=== PATIENT | female | born 1960 | race Caucasian/White ===

== ENCOUNTER 2018-04-14 13:46 | Emergency (ER) | payer OTHER ==
[2018-04-14 14:04] VITALS: BP 195/92
--- NOTE | 2018-04-14 14:49 | UC ---
Dizzy HPI HPI Summary: Intermittent dizziness x 2 weeks. First occurred 2 weeks ago, had dizziness and sense of room moving x 1/2 hour after bending forward at work. Recurred 3 days ago when she turned towards her granddaughter, had sense of room moving. Has eased off, but for the past 2 days has had intermittent sense of lightheadness, sometimes with sense of room shifting. No headache, diplopia, vision loss or scotomoa. No associated nausea or vomiting. No sense of near fainging. Notable is very high blood pressure on assessment: 195/92 initially, recheck lying 178/82, standing systolic 202. No chest pain, shortness of breath. [employer] continuous churn smoker. Admits to anxiety over the snf, no treatment. Last medical check up was about 7 years ago. - History Of Current Complaint Chief Complaint: UCDizziness Stated Complaint: DIZZINESS Time Seen by Provider: 04/14/18 14:35 Hx Obtained From: Patient ?: No Onset/Duration: Gradual Onset, Lasting Days - 3 Timing: Intermittent Episode Lasting - hours off and on Severity Initially: Moderate Severity Currently: Moderate Pain Intensity: 0 Character: Room Spinning, Lightheaded Aggravating Factor(s): Position Change, Change In Head Position Alleviating Factor(s): Rest Associated Signs And Symptoms: Positive: Tinnitus - in left ear, associates with some hearing loss. - Risk Factors Cardiac Risk Factors: Hypertension, Smoking CVA Risk Factor: Hypertension, Smoking - Allergies/Home Medications Allergies/Adverse Reactions: Allergies Allergy/AdvReac Type Severity Reaction Status Date / Time oxycodone Allergy See Comment Verified 04/14/18 13:58 PMH/Surg Hx/FS Hx/Imm Hx - Additional Past Medical History Additional PMH: history of gestational diabetes Previously Healthy: Yes - Smoker 1/2 ppd x almost 40 years Psychological History: Anxiety - Surgical History Surgical History: None - Family History Known Family History: Positive: Hypertension, Diabetes, Other - father brain tumor - Social History Occupation: Employed Full-time Lives: With Family - fiancee Alcohol Use: Occasionally Substance Use Type: None Smoking Status (MU): Heavy Every Day Tobacco Smoker Type: Cigarettes Amount Used/How Often: 1 1/2 PPD Review of Systems Constitutional: Negative ENT: Nasal Discharge, Sinus Congestion, Other - recent Respiratory: Cough Psychological: Anxious Is Patient Immunocompromised?: No All Other Systems Reviewed And Are Negative: Yes Physical Exam Triage Information Reviewed: Yes Appearance: Well-Appearing, Thin - anxious. Vital Signs: Initial Vital Signs Temp 99.7 F 04/14/18 13:58 Pulse 108 04/14/18 13:58 Resp 18 04/14/18 13:58 BP 195/92 04/14/18 13:58 Pulse Ox 97 04/14/18 13:58 Eye Exam: Other - ADRIÁN, normal EOM, no nystagmus, normal visual garvin by confrontation. Eyes: Positive: Conjunctiva Clear ENT: Positive: Pharynx normal Dental Exam: Other - upper denture Neck: Positive: Supple, Nontender, No Lymphadenopathy Respiratory: Positive: Lungs clear, Normal breath sounds Cardiovascular: Positive: RRR, No Murmur Abdomen Description: Positive: Nontender, No Organomegaly, Soft. Negative: Bruit Musculoskeletal Exam: Normal Musculoskeletal: Positive: Strength Intact, ROM Intact Neurological Exam: Other - CNII-XII normal; DTR's 2+ Neurological: Positive: Alert, Muscle Tone Normal Psychological Exam: Normal - anxious, but mood is normal. Skin Exam: Normal Diagnostics - EKG Cardiac Rate: NL Cardiac Rhythm: Sinus: Normal Ectopy: None ST Segment: Normal Dizzy Course/Dx - Course Course Of Treatment: begin metoprolol 25mg once daily for treatment of hypertension. Use meclizine at night to ease dizziness. Follow up blood pressure needed in 4 days. - Differential Dx/Diagnosis Provider Diagnoses: positional vertigo. severe hypertension Discharge - Sign-Out/Discharge Documenting (check all that apply): Post-Discharge Follow Up - Discharge Plan Condition: Stable Disposition: HOME Prescriptions: Meclizine TAB* [Antivert 12.5 TAB*] 12.5 mg PO TID PRN #30 tab PRN Reason: Dizziness Metoprolol Succinate XL TAB* [Toprol XL TAB*] 25 mg PO DAILY #30 tab.xl Patient Education Materials: Hypertension (ED), Vertigo (ED) Forms: *Work Release Referrals: Aron Mcdaniel MD [Primary Care Provider] - Brielle Coy MD [Emergency Provider] - Additional Instructions: Please confirm appointment with my office, [facility], [address] [place] [address] on Wednesday the 19 of April at 9:40. Number is [phone] Begin metoprolol 25mg daily for control of blood pressure. Ensure high intake of fluids. Use meclizine for dizziness/vertigo up to 3 times daily NEEDED. It can cause sedation. Make efforts to stop smoking. Lab work has been done to screen your thyroid, liver and kidney functions. Off work tomorrow. - Billing Disposition and Condition Condition: STABLE Disposition: HOME
[2018-04-14 19:55] LABS: ABS Basophils 0.1 10^3/ul (0-0.2); ABS Eosinophils 0.2 10^3/ul (0-0.6); ABS Lymphocytes 4.5 10^3/ul (1.0-4.8); ABS Monocytes 0.9 10^3/ul (0-0.8); ABS Neutrophils 6.1 10^3/ul (1.5-7.7); ABS Nucleated RBC 0 10^3/ul; Eosinophil % 1.5 % (0-6); Hematocrit 41 % (35-47); Lymphocyte % 38.2 % (25-47); Mean Corpuscular HGB Conc 34 g/dl (31-36); Mean Corpuscular Hemoglobin 31 pg (27-31); Mean Corpuscular Volume 91 fL (80-97); Mean Platelet Volume 6.3 um3 (7.4-10.4); Nucleated Red Blood Cells % 0; Platelet Count 364 10^3/ul (150-450); Red Blood Count 4.51 10^6/ul (4.0-5.4); Red Cell Distribution Width 13 % (10.5-15); White Blood Count 11.7 10^3/ul (3.5-10.8)
== END 2018-04-14 15:51 | disposition home or self-care (01) ==
LOC: UCCORT 13:46
DX: H81.10 Benign paroxysmal vertigo, unspecified ear (principal); I10 Essential (primary) hypertension; F41.9 Anxiety disorder, unspecified; Z88.5 Allergy status to narcotic agent; F17.210 Nicotine dependence, cigarettes, uncomplicated
CPT/HCPCS: 36415; 80053; 84443; 85025; 93005; 99202; G0463